=== PATIENT | female | born 1995 | race Two or more races ===

== ENCOUNTER 2024-12-28 12:59 | Observation (INO) | payer MEDICAID, SELFPAY ==
[2024-12-28 13:00] VITALS: BMI 33.6
[2024-12-28 13:17] VITALS: BP 116/75; PULSE 76; RESP 16; TEMP 36.9; O2SAT 96
--- NOTE | 2024-12-28 13:35 | PD.EDFMALE ---
ED Female Urogenital RME/HPI General Chief complaint: Urogenital-Female Stated complaint: BROWN DISCHARGE X1 DAY 25WEEKS OB Time Seen by Provider: 12/28/24 13:19 Arrival date/time: 12/28/24 12:59 RME / HPI RME / HPI Narrative: 29-year-old female patient 2 para 1, about 25 weeks , came in for evaluation regarding brown vaginal discharge. Onset of symptoms since early this morning. Denies any dysuria denies any vaginal bleeding pelvic pain or abdominal pain. Patient [employer]IP[employer] is Dr Meza Related Data Home Medications ?Medication ?Instructions ?Recorded ?Confirmed no.58-iron bisglycinate 1 cap PO QDAY 03/08/23 12/28/24 10 mg iron-folic acid 400 mcg capsule Previous Rx's ?Medication ?Instructions ?Recorded cefuroxime axetil 500 mg tablet 500 mg PO BID 7 days #14 tabs 12/28/24 Allergies Allergy/AdvReac Type Severity Reaction Status Date / Time No Known Allergies Allergy Verified 12/28/24 13:03 Review of Systems Review of Systems Narrative Review of Systems: Review of system reviewed and within normal limits except mentioned in HPI ED Exam Narrative Physical exam: VITAL SIGNS: Reviewed. GENERAL APPEARANCE: Alert and interactive, follows commands, no acute distress, HEAD AND FACE: Non-traumatic. ENT: PERRL, pink conjunctivitis, eyelid no trauma, Mucous membrane moist. NECK: Supple, nontender, no nuchal rigidity. CHEST: No tenderness, no crepitus, no paradoxical movement, no retractions. LUNGS: Clear, well ventilated, symmetric, no rales, no wheezing, no ronchi, no stridor, good breath sounds bilaterally. HEART: Regular rate, regular rhythm, no murmur, no gallops. ABDOMEN: Soft, positive bowel sounds, nondistended, no guarding, nontender, no rebound, no masses, RECTAL: Deferred. GENITAL: Deferred. NEUROLOGICAL: Gross motor function intact sensory function intact, Appropriate for age. MUSCULOSKELETAL: low back nontender, full range of motion. EXTREMITIES: Nontender, full range of motion. SKIN: Color pink, dry, no rash, no lacerations, no abrasions, no contusions. LYMPHATICS: Deferred. Course Quality Measures none Orders Category Date Time Status UA, C/S IF [Urinalysis, C/S if Indicated] Stat Lab 12/28/24 14:59 Completed Urine Culture Stat Lab 12/28/24 14:59 Received cephALEXin [Keflex] Med 12/28/24 15:51 Discontinued 500 mg PO X1 ONE Vital Signs Vital signs: Vital Signs Temperature 98.5 F 12/28/24 13:17 Pulse Rate 76 12/28/24 13:17 Respiratory Rate 16 12/28/24 13:17 Blood Pressure 116/75 12/28/24 13:17 Pulse Oximetry (%) 96 12/28/24 13:17 Oxygen Delivery Method Room Air 12/28/24 13:17 Urogenital - Female MDM Narrative MDM Narrative:: 29-year-old female patient 2 para 1, about 25 weeks , came in for evaluation regarding brown vaginal discharge. Onset of symptoms since early this morning. Denies any dysuria denies any vaginal bleeding pelvic pain or abdominal pain. Patient [employer] is Dr Meza Urinalysis significant for UTI. Otherwise unremarkable. Patient was sent to labor and delivery. Patient data External records reviewed:: None Clinical information provided by:: patient Social determinants that could affect healthcare access:: none Patient has the following chronic illnesses:: None How is presenting disease/condition affected by chronic disease/condition?: no chronic disease Evaluation data The following diagnostics were reviewed and interpreted by me:: lab results Lab and/or radiology exams considered but not ordered:: None Interpretation Summary: Urinalysis positive for UTI Medications / Prescriptions Medications or Prescriptions considered but not ordered:: None Medication administrations:: Medication Administration History Discontinued Medications Cephalexin HCl (Cephalexin 250 Mg Capsule) 500 mg PO X1 ONE Stop: 12/28/24 15:52 Last Admin: 12/28/24 16:37 Dose: 500 mg Documented By: RENETTA Lombardo Consultations Consultation(s) initiated? (list below): No Diagnosis Urogenital Female Differential Diagnosis: urinary tract infection Most likely diagnosis given after review of the tests above:: Abnormal vaginal discharge, UTI, Admission Indicated Admission indicated?: not indicated Admission Request Was there a request for admission?: No Disposition Plan Disposition Plan: Discharge Discharge Attestation Discharge Attestation: The patient was given an opportunity to ask questions and understood the discharge instructions. Discharge instructions specifically effects, indications for sooner follow up or return to the emergency department, and the expected course of current diagnosis. Patient condition: Stable Discharge Plan Plan Patient Disposition: HOME (Self Care) Discharge Disposition comment: Stable Problem List Clinical Impression: Urinary tract infection Patient/Caregiver Discharge Instructions Discharge Activity: activity as tolerated
[2024-12-28 15:17] LABS: Collection Type, Urine Clean Catch
[2024-12-28 15:34] LABS: Bacteria,Urine 1+; Bilirubin,Urine Negative (Negative); Blood,Urine 3+ (Negative); Color,Urine Lt-Yellow (Lt Yel-Yel); Glucose, Urine Negative (Negative); Ketones,Urine Negative (Negative); Leukocyte Esterase,Urine Positive (Negative); Nitrite,Urine Negative (Negative); PH,Urine 7.0 (5.0-7.0); Protein,Urine Trace (Neg - Trace); RBC,Urine 3 /hpf (0-3); Specific Gravity,Urine 1.020 (1.001-1.035); Squamous Epithelial Cell,Urine 7 /hpf (0-5); Urobilinogen,Urine Negative mg/dL (0.0-1.0); WBC,Urine 11 /hpf (0-5)
[2024-12-28 15:47] LABS: Clarity,Urine Hazy (Clear/Hazy); Culture Indicated,Urine Yes
[2024-12-28 17:00] VITALS: BP 134/78; PULSE 77; RESP 16; TEMP 36.7; O2SAT 98
[2024-12-28 17:05] VITALS: BP 130/82; PULSE 82; RESP 16; RESP 98; TEMP 36.7; BMI 36.0
== END 2024-12-28 17:30 | disposition home or self-care (01) ==
LOC: SERX 13:56 → S4SX 16:45
PROVIDERS: Nurse Practitioner Family; Admitting Provider Obstetrics & Gynecology; Emergency Provider Family Medicine; PCP Advanced Practice Midwife; Visit Provider Obstetrics & Gynecology
DX: O23.42 Unspecified infection of urinary tract in pregnancy, second trimester (principal); N39.0 Urinary tract infection, site not specified; Z3A.25 25 weeks gestation of pregnancy
CPT/HCPCS: 59025; 59899; 81001; 87086; 99283; A9270

== ENCOUNTER → 2025-03-20 | Outpatient (CLI) | payer MEDICAID, SELFPAY ==
--- NOTE | 2025-03-20 11:15 | XR_ITS ---
Examination: Abdomen sonogram, Limited Date and time of exam: March 20, 2025, 1119 hours INDICATIONS: Abdominal pain after eating beginning 2 months ago. Technique: Real-time bruno scale transabdominal sonographic images of the upper abdomen obtained. Findings: Multiple gallstones Gallbladder wall 0.37 cm no edema Common bile duct 0.3 cm Pancreatic head 2.5 cm Liver 17.1 cm no focal liver lesions Normal hepatopetal portal venous flow Patent IVC IMPRESSION: Cholelithiasis, negative for cholecystitis
== END | disposition home or self-care (01) ==
LOC: CDIM 10:59
PROVIDERS: Referring Provider Specialist; Visit Provider Specialist
DX: K80.20 Calculus of gallbladder without cholecystitis without obstruction (principal)
CPT/HCPCS: 76705

== ENCOUNTER 2025-04-03 10:35 | Inpatient (IN) | payer MEDICAID, SELFPAY ==
--- NOTE | 2025-03-31 13:44 | ESHP_ITS ---
RE: GABRIELA VALADEZ : 1995 DATE OF ADMISSION: 04/03/2025 HISTORY OF PRESENT ILLNESS: This is a 29-year-old 2, para 1-0-0-1 with due date of 04/10/2025 with intrauterine at 39 weeks on 04/03/2025, who presents for repeat delivery. The patient has uncomplicated care. ALLERGIES: NO KNOWN DRUG ALLERGIES. MEDICATIONS: 1. multivitamin 1 p.o. daily. 2. Albuterol sulfate 1-2 puffs q.4 hours p.r.n. shortness of breath, wheezing. PAST MEDICAL HISTORY: Gallstones, asthma, chlamydia cervicitis, elevated liver enzymes, and marijuana use. SOCIAL HISTORY: She denies any alcohol, drug use, or smoking. OB HISTORY: In 02/2023, 40 weeks, delivery, 8 pound 9 ounce male, nuchal cord. PAST SURGICAL HISTORY: In 02/2023, delivery. REVIEW OF SYSTEMS: She denies any chest pain, palpitations, cough, fever, shortness of breath, or lower extremity pain. PHYSICAL EXAMINATION: VITAL SIGNS: Blood pressure 122/74, heart rate 88, respirations 18, temperature 98.6. HEENT: Oropharynx and sclerae are clear. LUNGS: Clear to auscultation bilaterally. HEART: Regular rate and rhythm. ABDOMEN: Gravid consistent with estimated weight 8 pounds. PELVIC: Deferred. EXTREMITIES: Nontender. SKIN: No gross rashes or lesions. NEUROLOGIC: No focal deficits. ASSESSMENT AND PLAN: Intrauterine at 39 weeks on 04/03/2025, previous delivery, elective repeat delivery. PLAN: Repeat delivery. Informed consent was obtained. The patient made aware of the risks, complications, alternatives, and benefits of the proposed procedure and she agrees. DT: 11:35:32 TT: 13:42:00 Ref: [id number] - TID: [id number] MTDD
[2025-04-02 11:59] LABS: Basophils # (Auto) 0.0 Thou/mm3 (0.0-0.2); Basophils % (Auto) 0 % (0-2.5); Eosinophils # (Auto) 0.1 Thou/mm3 (0.0-0.5); Eosinophils % (Auto) 1 % (0-10); Hematocrit 37.3 % (36.0-46.0); Hemoglobin 12.8 g/dL (12.0-16.0); Immature Granulocytes Auto 0.06 Thou/mm3 (0.00-0.00); Lymphocytes # (Auto) 1.8 Thou/mm3 (1.0-4.8); Lymphocytes % (Auto) 18 % (10-50); Mean Corpuscular HGB Conc 34.3 g/dl (31.0-37.0); Mean Corpuscular Hemoglobin 30.2 pg (25.0-35.0); Mean Corpuscular Volume 88 fL (80-100); Monocytes # (Auto) 0.8 Thou/mm3 (0.0-0.8); Monocytes % (Auto) 8 % (0-12); Neutrophils # (Auto) 6.9 Thou/mm3 (1.8-7.7); Neutrophils % (Auto) 72 % (37-80); Nucleated Red Blood Cell # 0.00 Thou/mm3 (0.00-0.00); Nucleated Red Blood Cell % 0 /100 WBC (0); Platelet Count 271 Thou/mm3 (140-440); RDW Standard Deviation 43.0 fL (36.4-46.3); Red Blood Count 4.24 Miln/mm3 (4.00-5.20); White Blood Count 9.7 Thou/mm3 (3.6-11.0)
[2025-04-02 12:30] LABS: Alanine Aminotransferase 14 U/L (10-49); Albumin, Serum 4.2 gm/dL (3.5-5.0); Albumin/Globulin Ratio 1.6 (1.2-2.2); Alkaline Phosphatase 103 U/L (46-116); Anion Gap 12 (7-16); Aspartate Amino Transferase 18 U/L (0-34); BUN/Creatinine Ratio 13 Ratio (12-20); Bilirubin,Total 0.5 mg/dL (0.3-1.2); Blood Urea Nitrogen 8 mg/dL (9-23); Calcium 9.4 mg/dL (8.3-10.6); Calcium (Corrected) 9.4 mg/dL (8.5-10.1); Carbon Dioxide 21.4 mMol/L (20.0-31.0); Chloride 106 mMol/L (98-107); Creatinine (Component) 0.6 mg/dL (0.6-1.3); Globulin 2.6 gm/dL (2.3-3.5); Glucose 81 mg/dL (74-106); Osmolality,Calculated 274 (275-295); Potassium 4.0 mMol/L (3.4-5.1); Sodium 139 mMol/L (136-145); Total Protein 6.8 gm/dL (5.7-8.2); eGFR > 60 See Note
[2025-04-02 12:47] LABS: Syphilis Nonreactive (Nonreactive)
[2025-04-02 12:59] LABS: INR 0.9 (0.9-1.3); Partial Thromboplastin Time 31.0 Seconds (22.0-36.0); Prothrombin Time 10.0 Seconds (9.0-12.2)
[2025-04-03] VITALS (17 sets, daily range): BP systolic 111–140; BP diastolic 64–89; PULSE 77–100; RESP 12–20; TEMP 36.6–37.4; O2SAT 95–99; BMI 36.9
[2025-04-03] MEDS: RINGERS LACTATED 1000 ML 1,000 ML 100 ML IV ×2 (11:00→14:55)
[2025-04-03 11:22] LABS: Amphetamine/Metham Scrn,Ur OB Negative (Negative); Benzoylecgonine Screen, Ur OB Negative (Negative); Opiate Screen,Urine OB Negative (Negative); THC Screen,Urine OB Negative (Negative)
--- NOTE | 2025-04-03 13:38 | PD.LDDS ---
DS: Providers Provider Date of admission: 04/03/25 10:35 Primary care physician: Micky Stewart MD Admitting Provider: Arthur Meza MD Attending Provider on Admission: Arthur Meza MD Attending Provider on DC: Arthur Meza MD Discharging Provider: Arthur Meza MD DS: Diagnosis Problem List Completed Was Problem List Reviewed/Reconciled?: Yes Summary/Hosp Course Peripartum Data Delivery Method: Low Transverse Episiotomy Description: None Procedures: Procedures Operation Date: 04/03/25 15:15 <No data on this case meets the specified criteria> Time Spent with Patient Time attestation: Total time spent providing and/or coordinating discharge services: Exam Vital Signs Temp Pulse Resp BP Pulse Ox O2 Del Method 97.8 F 81 16 124/66 99 Room Air 04/03/25 11:40 04/03/25 11:36 04/03/25 11:40 04/03/25 11:36 04/03/25 11:40 04/03/25 11:40 Discharge Plan Plan Patient Disposition: HOME (Self Care) Patient condition on transfer: Stable Prescriptions/Referrals Prescriptions/Med Rec: New ibuprofen 600 mg tablet 600 mg PO Q6H PRN (Reason: pain) Qty: 30 0RF Continued PNV no.58-iron bisgly-folic ac 10-400 mg-mcg Capsule 1 cap PO QDAY Referrals: Micky Stewart MD [Primary Care Provider, Family Practice] Patient/Caregiver Discharge Instructions Discharge Activity: activity as tolerated Other Discharge Activity Instructions:: Follow up office 1 week. Education Materials: C Section Dc Print Language: Citizen Of [place] Stand Alone Forms: Sarah Award Info., Patient Portal Info Letter Discharge Order Discharge Orders: Discharge (Routine); Ordered 04/05/25 Ordered By: Arthur Meza Planned Discharge Date 04/05/25
[2025-04-03] MEDS: CITRIC ACID/SODIUM CITR 15 ML UDC (BICITRA) 30 ML PO (14:53)
[2025-04-03] MEDS: FAMOTIDINE INJ 10 MG/ML VIAL 2 ML 20 MG IV (14:54)
[2025-04-03] MEDS: ceFAZolin/D5W 2 GM IV 2 GM/100 ML BAG IV (14:54)
--- NOTE | 2025-04-03 15:04 | ESOP_ITS ---
Operative Note - WELDING INSPECTOR Procedure Date of procedure: 04/03/25 Procedure Performed: Repeat low-transverse section via Pfannenstiel skin incision Indication: Intrauterine at 39 weeks and 0 days Previous delivery Elects repeat delivery Pre-Op diagnosis: Intrauterine at 39 weeks and 0 days Previous delivery Elects repeat delivery Post-Op diagnosis: Intrauterine at 39 weeks and 0 days Previous delivery Elects repeat delivery Anesthesia type: Spinal Procedure description: After proper informed consent was obtained and the patient was made aware of the risks, complications, alternatives and benefits of the proposed procedure she was taken to the operating room where she underwent induction of spinal anesthesia. She was prepped and draped in the usual sterile fashion. A timeout was performed.? A Pfannenstiel skin incision was made with the scalpel and carried through to the underlying layer of fascia with the Bovie. The fascia was nicked in the midline incision and the incision was extended bilaterally with the Bovie. The inferior aspect of the fascial incision was grasped with Deirdre clamps elevated and the underlying rectus muscle dissected off with the Bovie. The superior aspect the fascial incision was grasped with Deirdre clamps elevated and the underlying rectus muscle dissected off with the Bovie. The rectus muscles were in the midline. The peritoneum was grasped between 2 Ocampo clamps and entered sharply with the Metzenbaum scissors. The peritoneum was extended superiorly and inferiorly with good visualization of the bladder. The vesicouterine peritoneum was incised transversely and the bladder flap created digitally. A [place] blade was inserted. A low transverse incision was made in the uterus with a scapel and the incision was extended digitally. The male 's head delivered and the mouth and nose were suctioned with the bulb suction. The shoulder and body delivered atraumatically. The cord was clamped after 30 second delayed cord clamping and the cord was cut.? The infant was handed off to the waiting Pediatric staff, cord blood was collected for lab testing. The placenta was removed complete and intact. The uterus was exteriorized and cleared of all clots and debris. The uterine incision was closed with #1-0 chromic catgut suture in a running interlocking fashion. A second layer of the same suture was used to imbricate the first layer and obtain excellent hemostasis. The vesicouterine peritoneum was closed with 2-0 chromic catgut suture in a running fashion. The firm uterus was returned to the abdomen. The gutters were cleared of all clots and debris. The peritoneum was closed with 0 chromic catgut suture in running fashion. The rectus muscle was closed with 0 chromic catgut suture. The fascia was closed with 0 Vicryl beginning at each angle and ending in the center in a running fashion. The subcutaneous tissue was irrigated with warmed normal saline solution and found to be hemostatic. The subcutaneous tissue was closed with 2-0 chromic catgut suture in a running fashion. The skin was closed with 4-0 Monocryl. A Dermabond Prineo dressing was applied and a sterile pressure dressing was applied.? She tolerated the procedure well. Counts were correct. I discussed with the patient the nature of her condition, intraoperative findings and expectation for recovery all? questions answered. Estimated blood loss (ml): 600 Findings: Live male infant Apgars 8 and 9. Weight 7lbs 5 oz Nuchal cord Uterus with multiple subserosal and intramural myoma Placenta removed complete and intact Ovaries and tubes grossly within normal limits Clear amniotic fluid Complications: none Surgical staff ROXANA Miller Dr Surgeon Reji Lopez CRNA Operation Date: 04/03/25 15:15 <No data on this case meets the specified criteria> Diagnosis Problem List Completed Was Problem List Reviewed/Reconciled?: Yes
[2025-04-03] MEDS: ONDANSETRON INJ 2 MG/ML INJ 2 ML 4 MG IVP (18:27)
[2025-04-03] MEDS: OXYTOCIN in NS 20 units 20 UNIT/1,000 ML BAG 125 UNIT IV (19:43)
[2025-04-03] MEDS: KETOROLAC INJ 30 MG/ML VIAL IVP (19:45)
[2025-04-03 22:56] LABS: Basophils # (Auto) 0.1 Thou/mm3 (0.0-0.2); Basophils % (Auto) 0 % (0-2.5); Eosinophils # (Auto) 0.0 Thou/mm3 (0.0-0.5); Eosinophils % (Auto) 0 % (0-10); Hematocrit 30.6 % (36.0-46.0); Hemoglobin 10.7 g/dL (12.0-16.0); Immature Granulocytes Auto 0.05 Thou/mm3 (0.00-0.00); Lymphocytes # (Auto) 2.0 Thou/mm3 (1.0-4.8); Lymphocytes % (Auto) 13 % (10-50); Mean Corpuscular HGB Conc 35.0 g/dl (31.0-37.0); Mean Corpuscular Hemoglobin 30.7 pg (25.0-35.0); Mean Corpuscular Volume 88 fL (80-100); Monocytes # (Auto) 1.0 Thou/mm3 (0.0-0.8); Monocytes % (Auto) 7 % (0-12); Neutrophils # (Auto) 11.8 Thou/mm3 (1.8-7.7); Neutrophils % (Auto) 80 % (37-80); Nucleated Red Blood Cell # 0.00 Thou/mm3 (0.00-0.00); Nucleated Red Blood Cell % 0 /100 WBC (0); Platelet Count 228 Thou/mm3 (140-440); RDW Standard Deviation 43.1 fL (36.4-46.3); Red Blood Count 3.48 Miln/mm3 (4.00-5.20); White Blood Count 14.9 Thou/mm3 (3.6-11.0)
[2025-04-04] MEDS: KETOROLAC INJ 30 MG/ML VIAL IVP ×2 (03:07→12:00)
[2025-04-04] MEDS: RINGERS LACTATED 1000 ML 1,000 ML 125 ML IV (03:10)
[2025-04-04 04:02] VITALS: BP 96/63; PULSE 90; RESP 16; TEMP 37.3; O2SAT 97
[2025-04-04] MEDS: HYDROcodone/APAP 5/325 TABLET 1 TAB PO ×2 (06:37→17:57)
--- NOTE | 2025-04-04 07:37 | ESPR_ITS ---
RE: GABRIELA VALADEZ : 1995 DATE OF SERVICE: 04/04/2025 SUBJECTIVE: Postoperative day #1, the patient denies any problem or complaint. She is voiding, ambulating, tolerating a diet, passing flatus. She denies any excessive vaginal bleeding. She denies any dizziness or lightheadedness. She denies any chest pain, palpitations, shortness of breath, or lower extremity pain. OBJECTIVE: Vital Signs: Blood pressure is 96/63, heart rate 90, respirations 16, temperature is 99.1, pulse ox is 97% on room air. Lungs: Clear to auscultation bilaterally. Heart: Regular rate and rhythm. Abdomen: Dressing dry and intact. Fundus is firm. Extremities: Nontender. LABORATORY DATA: Hemoglobin pre-delivery is 12.8, post-delivery is 10.7. ASSESSMENT: Postoperative day #1, status post delivery. PLAN: Remove dressing. Discontinue IV. support. Encourage ambulation. Possible discharge home tomorrow. DT: 07:18:07 TT: 07:35:00 Ref: [id number] - TID: [id number]
[2025-04-04 07:40] VITALS: BP 112/70; PULSE 94; RESP 18; TEMP 36.8; O2SAT 95
[2025-04-04] MEDS: DOCUSATE SOD 100 MG CAPSULE PO (08:37)
--- NOTE | 2025-04-04 11:00 | PC.SS ---
CHANGE ADVISOR conducted bedside contact with the patient to address nursing referral indicating patient possessed past history of THC use.? Toxicology screening at admission negative.? CHANGE ADVISOR introduced self and role.? CHANGE ADVISOR discussed basis of referral.? Patient confirmed use of THC.? Patient stated that use to address disturbances in sleep.? Patient reports ceasing use.? Does not plan on resuming use.? , Antione; is the patient?s second child.? was delivered via .? Patient plans of infant.? OB services provided by Dr. Meza.? Patient confirms consistency with OB appointments.? Patient is aligned with SNAP and WIC.? Patient is not receiving TANF.? Patient denies history of alcohol/drug abuse.? Patient denies CWS intervention.? Patient denies episodes of domestic violence.? Patient denies possessing a history of mental health, reports no current possession of depression or anxiety.? Patient has access to appropriate supplies and equipment; to include a car seat.? FOB will provide transportation upon discharge.? Patient describes possessing support system consisting of FOB?s parents and extended family.? CHANGE ADVISOR provided the patient with community resources to include [facility] and Warm Line.? No further intervention required at this time, social organization professor will be available to address any further concerns.? CHANGE ADVISOR updated bedside nurse.?
[2025-04-04 11:55] VITALS: BP 109/72; PULSE 93; RESP 16; TEMP 36.8; O2SAT 96
[2025-04-04 15:48] VITALS: BP 121/78; PULSE 86; RESP 16; TEMP 36.8
[2025-04-04 19:40] VITALS: BP 121/75; PULSE 96; RESP 16; TEMP 36.7; O2SAT 96
--- NOTE | 2025-04-04 20:07 | OBDSUM_ITS ---
Data ([facility]) Data Hx Section: Yes : 2 Term: 1 : 0 Livin Abortions: Spontaneous & Theraputic: 0 Delivery Data ([facility]) Labor Data Induction/Augmentation Agent: None ROM date: 04/03/25 Amniotic membrane rupture type: Artificial Amniotic fluid description: Clear Delivery Data EDC: 04/10/25 EDC calculated by:: LMP/early US confirmation [place] delivery date: 04/03/25 [place] delivery time: 15:30 Gestational age (weeks): 39 Gestational age (days): 0 Placenta delivery date: 04/03/25 Placenta delivery time: 15:30 Delivered by: GEILING DO Delivery nurse: ZHAO GARG RN [place] nurse: KEITH CARREON RN Cement Block Maker at delivery: No Support person(s) at delivery: FOB Other staff at delivery: SEE INTRAOP Delivery Method Delivery method: Low Transverse Presentation: Vertex Anesthesia Type Anesthesia Type: None Anesthesia type: Spinal Placenta Placenta delivery description: Manual Removal Cord blood sent to lab: Yes cord blood collection: Cord Blood Type Episiotomy Episiotomy description: None EBL Estimated blood loss (ml): 500 Umbilical Cord cord description: 3 Vessels and Nuchal Cord Additional Procedures Vacuum assisted Cesrean Delivery with Mityvac vacuum successful on 1st traction attempt. Complications Complications: None Data ([facility]) [place] Data order: 1 's gender: Male weight (gms): 7 lb 5.462 oz Weight (pounds): 7 lbs and 5.5 ozs [place] length: 8.07 in 1 minute: 8 5 minutes: 9
[2025-04-04] MEDS: HYDROcodone/APAP 5/325 TABLET 2 TAB PO (22:06)
[2025-04-05 03:20] VITALS: BP 117/71; PULSE 88; RESP 16; TEMP 36.6; O2SAT 97
[2025-04-05] MEDS: HYDROcodone/APAP 5/325 TABLET 2 TAB PO ×2 (05:40→12:01)
--- NOTE | 2025-04-05 07:04 | ESPR_ITS ---
RE: GABRIELA VALADEZ : 1995 DATE OF SERVICE: 04/05/2025 SUBJECTIVE: Postoperative day #2. Patient denies any problem or complaints. She would like something to help to have a bowel movement, but she is passing flatus. She is voiding without difficulty. She denies any excessive vaginal bleeding. She denies any dizziness or lightheadedness. She denies any chest pain, palpitations, shortness of breath, or lower extremity pain. OBJECTIVE: Vital Signs: Blood pressure 117/71, heart rate 88, respirations 16, temperature is 98.0, pulse oximetry is 97% on room air. Lungs: Clear to auscultation bilaterally. Heart: Regular rate and rhythm. Abdomen: Nondistended. Incision clear and intact. Fundus is firm. Extremities: Nontender. ASSESSMENT: Postoperative day #2 status post delivery. PLAN: Dulcolax orally and discharge home. Discharge instructions given. Follow up in the office in 1 week. DT: 06:56:21 TT: 07:02:00 Ref: [id number] - TID: [id number]
[2025-04-05 08:25] VITALS: BP 106/71; PULSE 88; RESP 16; TEMP 36.4; O2SAT 96
[2025-04-05] MEDS: DOCUSATE SOD 100 MG CAPSULE PO (09:06)
[2025-04-05 12:00] VITALS: BP 112/74; PULSE 92; RESP 18; TEMP 36.6; O2SAT 96
== END 2025-04-05 15:30 | disposition home or self-care (01) | DRG 540 ==
LOC: S4SX 13:53 → S4NX 15:22
PROVIDERS: Admitting Provider Specialist; PCP Family Medicine; Visit Provider Specialist
PROC: 10D00Z1 Extraction of Products of Conception, Low, Open Approach (ICD-10-PCS; CPT 59514; principal; 2025-04-03 15:00)
DX: O34.211 Maternal care for low transverse scar from previous cesarean delivery (principal); O69.81X0 Labor and delivery complicated by cord around neck, without compression, not applicable or unspecified; O34.13 Maternal care for benign tumor of corpus uteri, third trimester; D25.1 Intramural leiomyoma of uterus; D25.2 Subserosal leiomyoma of uterus; Z3A.39 39 weeks gestation of pregnancy; Z37.0 Single live birth
CPT/HCPCS: 36415; 80053; 80307; 85025; 85610; 85730; 86780; 86850; 86900; 86901; J0689; J1885; J2250; J2274; J2405; J2590; J3010; J3490; J7120; A9270; J1596; J2270